=== PATIENT | female | born 1995 | race Caucasian/White ===

== ENCOUNTER 2017-06-01 17:28 | Emergency (ER) | payer OTHER ==
[~2017-06-01] VITALS: Ht 149.9 cm; Wt 43.5 kg
[~2017-06-01 17:28] MED LIST: BENZ100A PO; Flonase 0.05% N16 GM; GUAI120S1 PO; MELA3 PO; Sudogest30 MG PO; Vistaril25 MG PO
== END 2017-06-01 18:56 | disposition home or self-care (01) ==
LOC: ER 17:28
DX: L98.9 Disorder of the skin and subcutaneous tissue, unspecified (principal); Z88.0 Allergy status to penicillin; Z79.899 Other long term (current) drug therapy; G43.909 Migraine, unspecified, not intractable, without status migrainosus; F17.200 Nicotine dependence, unspecified, uncomplicated
CPT/HCPCS: 99282

== ENCOUNTER → 2017-07-13 | Outpatient (CLI) | payer OTHER ==
[2017-07-14 13:10] LABS: Specimen Source CERVICAL
[2017-07-15 04:01] LABS: Source CERVICAL
[2017-07-15 04:03] LABS: Source CERVICAL
== END ==
LOC: LAB 13:08 → LAB SHORT 13:08
PROVIDERS: Registered Nurse Community Health
DX: Z34.01 Encounter for supervision of normal first pregnancy, first trimester (principal)
CPT/HCPCS: 87491; 87591; G0123